=== PATIENT | female | born 1965 | race Caucasian/White ===

== ENCOUNTER 2018-04-12 06:53 | Day surgery (SDC) | payer OTHER ==
[~2018-04-12 06:53] MED LIST: COREG CR10 MG PO; RESTORA PO; VITAMIN C500 MG; ZANTAC150 M3
== END 2018-04-12 14:45 | disposition home or self-care (01) ==
LOC: CIR.AMB 06:53
DX: D24.1 Benign neoplasm of right breast (principal)

== ENCOUNTER 2018-07-06 13:03 | Outpatient (CLI) | payer OTHER | END 2018-07-06 14:23 | disposition home or self-care (01) | LOC: NUCLEAR 13:03 | DX: M81.0 Age-related osteoporosis without current pathological fracture (principal); Z80.0 Family history of malignant neoplasm of digestive organs; N60.82 Other benign mammary dysplasias of left breast; D50.0 Iron deficiency anemia secondary to blood loss (chronic); D51.8 Other vitamin B12 deficiency anemias; N92.4 Excessive bleeding in the premenopausal period; N39.8 Other specified disorders of urinary system; D18.03 Hemangioma of intra-abdominal structures; N92.1 Excessive and frequent menstruation with irregular cycle ==

== ENCOUNTER → 2018-09-26 | Emergency (ER) | payer OTHER ==
[~2018-09-26] VITALS: Ht 165.1 cm; Wt 70.3 kg
[~2018-09-26] MED LIST changes: +DICY20TA PO; +FEMARA2.5 MG; +INTESTINEX680 M1 PO; +PROTONIX20 MG PO; +ZANTAC300 MG PO
== END | disposition home or self-care (01) ==
LOC: ER 20:52
DX: K29.60 Other gastritis without bleeding (principal)

== ENCOUNTER 2018-10-13 09:25 | Outpatient (CLI) | payer OTHER | END 2018-10-13 09:34 | disposition home or self-care (01) | LOC: TOM 09:25 | DX: R10.9 Unspecified abdominal pain (principal); K58.9 Irritable bowel syndrome, unspecified ==

== ENCOUNTER 2019-08-08 04:49 | Day surgery (SDC) | payer OTHER ==
[~2019-08-08 04:49] MED LIST changes: +AROMASIN25 MG PO; +DESIPRAMINE HCL25 MG PO; +PEPCID AC20 MG PO; +[UNRECOGNIZED DRUG - OTHER] PO
[2019-08-08] MEDS ORDERED: RECTICARE30 GM TOP (10:54)
[2019-08-08] MEDS ORDERED: PERCOCET 5-3251 EACH PO (10:54)
[2019-08-08] MEDS ORDERED: NEURONTIN300 MG PO (10:54)
[2019-08-08] MEDS ORDERED: LINZESS290 MCG (19:40)
== END 2019-08-08 12:05 | disposition home or self-care (01) ==
LOC: CIR.AMB 04:49
DX: K64.4 Residual hemorrhoidal skin tags (principal); K64.2 Third degree hemorrhoids

== ENCOUNTER 2019-08-08 18:55 | Emergency (ER) | payer OTHER ==
[~2019-08-08] VITALS: Ht 165.1 cm; Wt 65.8 kg
[~2019-08-08 18:55] MED LIST changes: +NEURONTIN300 MG PO; +PERCOCET 5-3251 EACH PO; +RECTICARE30 GM TOP
[2019-08-08] MEDS ORDERED: LINZESS290 MCG (19:40)
== END 2019-08-09 00:16 | disposition home or self-care (01) ==
LOC: ER 18:55
DX: G89.18 Other acute postprocedural pain (principal)

== ENCOUNTER 2019-09-07 09:12 | Outpatient (CLI) | payer OTHER ==
[~2019-09-07 09:12] MED LIST changes: +LINZESS290 MCG
== END 2019-09-07 09:33 | disposition home or self-care (01) ==
LOC: LAB 09:12
DX: N60.81 Other benign mammary dysplasias of right breast (principal); N60.82 Other benign mammary dysplasias of left breast; Z80.0 Family history of malignant neoplasm of digestive organs; D50.0 Iron deficiency anemia secondary to blood loss (chronic); D51.8 Other vitamin B12 deficiency anemias; N92.4 Excessive bleeding in the premenopausal period; N93.8 Other specified abnormal uterine and vaginal bleeding; D18.03 Hemangioma of intra-abdominal structures; N92.1 Excessive and frequent menstruation with irregular cycle; D50.8 Other iron deficiency anemias; I10 Essential (primary) hypertension; R97.0 Elevated carcinoembryonic antigen [CEA]; R97.8 Other abnormal tumor markers; D69.6 Thrombocytopenia, unspecified

== ENCOUNTER 2020-02-07 07:55 | Outpatient (CLI) | payer OTHER | END 2020-02-07 09:35 | disposition home or self-care (01) | LOC: NUCLEAR 07:55 | DX: C50.811 Malignant neoplasm of overlapping sites of right female breast (principal); C50.812 Malignant neoplasm of overlapping sites of left female breast; Z80.0 Family history of malignant neoplasm of digestive organs; N60.81 Other benign mammary dysplasias of right breast; N60.82 Other benign mammary dysplasias of left breast; D50.0 Iron deficiency anemia secondary to blood loss (chronic); D51.8 Other vitamin B12 deficiency anemias; N92.4 Excessive bleeding in the premenopausal period; N39.8 Other specified disorders of urinary system; D18.03 Hemangioma of intra-abdominal structures; N92.1 Excessive and frequent menstruation with irregular cycle | CPT/HCPCS: 78803; A9503 ==

== ENCOUNTER → 2020-02-08 | Outpatient (CLI) | payer OTHER | END | disposition home or self-care (01) | LOC: MAMO-SONO 11:29 | DX: N60.81 Other benign mammary dysplasias of right breast (principal); N60.82 Other benign mammary dysplasias of left breast; D50.0 Iron deficiency anemia secondary to blood loss (chronic); D51.8 Other vitamin B12 deficiency anemias; N92.4 Excessive bleeding in the premenopausal period; N93.8 Other specified abnormal uterine and vaginal bleeding; D18.03 Hemangioma of intra-abdominal structures; N92.1 Excessive and frequent menstruation with irregular cycle; Z80.0 Family history of malignant neoplasm of digestive organs ==

== ENCOUNTER 2020-07-02 15:28 | Outpatient (CLI) | payer OTHER | END 2020-07-02 15:36 | disposition home or self-care (01) | LOC: LAB 15:28 | PROVIDERS: ATTEND Internal Medicine Hematology & Oncology | DX: D50.8 Other iron deficiency anemias (principal); I10 Essential (primary) hypertension; R70.0 Elevated erythrocyte sedimentation rate; R97.0 Elevated carcinoembryonic antigen [CEA]; R74.8 Abnormal levels of other serum enzymes; K86.1 Other chronic pancreatitis; E72.20 Disorder of urea cycle metabolism, unspecified; Z80.0 Family history of malignant neoplasm of digestive organs; N60.81 Other benign mammary dysplasias of right breast; N60.82 Other benign mammary dysplasias of left breast; D50.0 Iron deficiency anemia secondary to blood loss (chronic); D51.8 Other vitamin B12 deficiency anemias; N92.4 Excessive bleeding in the premenopausal period; N93.8 Other specified abnormal uterine and vaginal bleeding; D18.03 Hemangioma of intra-abdominal structures; N92.1 Excessive and frequent menstruation with irregular cycle ==

== ENCOUNTER 2020-07-11 07:34 | Outpatient (CLI) | payer OTHER | END 2020-07-11 07:42 | disposition home or self-care (01) | LOC: SONOGRAMA 07:34 | PROVIDERS: ATTEND Internal Medicine Hematology & Oncology | DX: N93.8 Other specified abnormal uterine and vaginal bleeding (principal); N92.4 Excessive bleeding in the premenopausal period; D18.03 Hemangioma of intra-abdominal structures; N92.1 Excessive and frequent menstruation with irregular cycle; Z80.0 Family history of malignant neoplasm of digestive organs; N60.81 Other benign mammary dysplasias of right breast; N60.82 Other benign mammary dysplasias of left breast; D50.0 Iron deficiency anemia secondary to blood loss (chronic); D51.8 Other vitamin B12 deficiency anemias ==

== ENCOUNTER 2021-02-12 10:13 | Outpatient (CLI) | payer OTHER | END 2021-02-12 10:25 | disposition home or self-care (01) | LOC: MAMO-SONO 10:13 | PROVIDERS: ATTEND Internal Medicine Hematology & Oncology | DX: N60.81 Other benign mammary dysplasias of right breast (principal); N60.82 Other benign mammary dysplasias of left breast; Z80.0 Family history of malignant neoplasm of digestive organs; D50.0 Iron deficiency anemia secondary to blood loss (chronic); D51.8 Other vitamin B12 deficiency anemias; N92.4 Excessive bleeding in the premenopausal period; N93.8 Other specified abnormal uterine and vaginal bleeding; D18.03 Hemangioma of intra-abdominal structures; N92.1 Excessive and frequent menstruation with irregular cycle ==

== ENCOUNTER 2021-07-02 09:52 | Outpatient (CLI) | payer OTHER | END 2021-07-02 10:10 | disposition home or self-care (01) | LOC: TOM 09:52 | PROVIDERS: ATTEND Internal Medicine Gastroenterology | DX: Q61.01 Congenital single renal cyst (principal); D18.09 Hemangioma of other sites; R10.84 Generalized abdominal pain ==

== ENCOUNTER 2022-02-10 10:49 | Outpatient (CLI) | payer OTHER | END 2022-02-10 11:08 | disposition home or self-care (01) | LOC: MAMO-SONO 10:49 | PROVIDERS: ATTEND Internal Medicine Hematology & Oncology | DX: Z12.31 Encounter for screening mammogram for malignant neoplasm of breast (principal); N63.0 Unspecified lump in unspecified breast ==

== ENCOUNTER 2023-02-12 09:15 | Outpatient (CLI) | payer OTHER | END 2023-02-12 09:27 | disposition home or self-care (01) | LOC: MAMO-SONO 09:15 | PROVIDERS: ATTEND Internal Medicine Hematology & Oncology | DX: Z12.31 Encounter for screening mammogram for malignant neoplasm of breast (principal); N63.10 Unspecified lump in the right breast, unspecified quadrant ==

== ENCOUNTER 2024-04-09 15:07 | Emergency (ER) | payer OTHER ==
[~2024-04-09] VITALS: Ht 167.6 cm; Wt 73.5 kg
[2024-04-09] MEDS ORDERED: NEXIUM5 MG (15:58)
[2024-04-09] MEDS ORDERED: TOPROL XL100 M1 (15:58)
[2024-04-09] MEDS ORDERED: NORPRAMIN10 MG (15:58)
[2024-04-09] MEDS ORDERED: LYRICA300 MG (15:58)
[2024-04-09 18:59] LABS: HEMATOCRIT 40.3 % (36.0-45.00); HEMOGLOBIN 13.7 g/dL (12.0-15.00); MEAN CELL VOLUME 96.1 fL (80.00-100.00); MEAN CORPUSCULAR HEMOGLOBIN 32.7 pg (27.00-32.0); PLATELET COUNT 199 K/uL (150-450); RED CELL DISTRIBUTION WIDTH 13.6 % (11.5-14.5)
[2024-04-09 19:22] LABS: INR 0.98; PARTIAL THROMBOPLASTIN TIME 28.3 SECONDS (22.0-34.0); PROTHROMBIN TIME 10.3 SECONDS (9.0-11.5)
[2024-04-09 19:25] LABS: PH,URINE 7.5 (5.0-8.0); URINE APPEARANCE Clear; URINE BILIRRUBIN Negative (NEGATIVE); URINE BLOOD Negative; URINE COLOR Yellow; URINE GLUCOSE Negative (NEGATIVE); URINE LEUKOCYTE Small; URINE NITRATE Negative; URINE PROTEIN Negative (NEGATIVE); URINE UROBILINOGEN 0.2 E.U./dl
[2024-04-09 19:30] LABS: URINE BACTERIA 11.3 uL (0.0-1933); URINE EPITHELIAL CELLS 4.1 uL (0.0-38.8); URINE RBC 43.2 uL (0.0-20.8); URINE WBC 109.9 uL (0.0-23.2)
[2024-04-09 19:35] LABS: ALBUMIN 3.8 gm/dL (3.4-5.0); BILIRUBIN TOTAL 0.69 mg/dL (0.3-1.2); CALCIUM 9.2 mg/dL (8.5-10.1); GFR 56.95; GLOBULINA 3.7 G/DL (2.4-3.5); POTASSIUM 4.1 mEq/L (3.5-5.1); TOTAL PROTEIN 7.5 gm/dL (6.4-8.2)
[2024-04-10] MEDS ORDERED: ACETAMINOPHEN WITH CODEINE 1 UDTAB TABLET PO STA (01:26)
== END 2024-04-10 02:03 | disposition home or self-care (01) ==
LOC: ER 15:08
PROVIDERS: Emergency Medicine
DX: K58.9 Irritable bowel syndrome, unspecified (principal); M54.16 Radiculopathy, lumbar region; R10.9 Unspecified abdominal pain; Z88.2 Allergy status to sulfonamides; Z88.6 Allergy status to analgesic agent
CPT/HCPCS: 36415; 74177; Q9965

== ENCOUNTER 2025-02-22 09:19 | Outpatient (CLI) | payer OTHER ==
[~2025-02-22 09:19] MED LIST changes: +LYRICA300 MG; +NEXIUM5 MG; +NORPRAMIN10 MG; +TOPROL XL100 M1
== END 2025-02-22 09:20 | disposition home or self-care (01) ==
LOC: MAMO-SONO 09:19
PROVIDERS: ATTEND Internal Medicine Hematology & Oncology
DX: N60.81 Other benign mammary dysplasias of right breast (principal); N60.82 Other benign mammary dysplasias of left breast; Z80.0 Family history of malignant neoplasm of digestive organs; D50.0 Iron deficiency anemia secondary to blood loss (chronic); D51.8 Other vitamin B12 deficiency anemias; N92.4 Excessive bleeding in the premenopausal period; N93.9 Abnormal uterine and vaginal bleeding, unspecified; D18.03 Hemangioma of intra-abdominal structures; N92.1 Excessive and frequent menstruation with irregular cycle; R10.10 Upper abdominal pain, unspecified; K58.9 Irritable bowel syndrome, unspecified; J32.4 Chronic pansinusitis